=== PATIENT | female | born 1970 | race Caucasian/White ===

== ENCOUNTER 2020-12-23 10:58 | Emergency (ER) | payer OTHER ==
[~2020-12-23 10:58] MED LIST: COLACE100 MG PO; FEOSOL325 MG PO; MOTRIN600 MG PO; PERCOCET 5/3251 TAB PO
[2020-12-23 13:09] LABS: BASOPHIL 0.7 % (0-2); HGB 13.9 g/dl (12.5-16.0); MCHC 33.1 g/dL (32.0-36.0); MCV 96.8 fL (78.0-100.0); MONOCYTE 11.8 % (0-12); MPV 10.5 fL (6.0-9.5); NEUTROPHIL 54.3 % (41-80); NRBC 0; PLT 238 K/uL (150-400); RBC 4.34 M/uL (4.20-5.40); RDW 12.7 % (11.5-14.0); WBC 4.2 K/uL (4.0-10.5)
[2020-12-23 13:15] LABS: BILIRUBIN NEGATIVE (NEGATIVE); BLOOD NEGATIVE Ery/uL (NEGATIVE); CLARITY CLEAR (CLEAR); COLOR YELLOW (YELLOW); GLUCOSE (U) NORMAL (NORMAL); LEUKOCYTES NEGATIVE Leu/uL (NEGATIVE); NITRITE NEGATIVE (NEGATIVE); PROTEIN NEGATIVE (NEGATIVE); SPECIFIC GRAVITY 1.015 (1.001-1.030); UROBILINOGEN 0.2 mg/dL (0.2-1.0); pH 7.5 (5.0-9.0)
[2020-12-23 13:27] LABS: ALBUMIN 3.8 g/dL (3.4-5.0); BILIRUBIN - TOTAL 0.2 mg/dL (0.2-1.0); BUN/CREAT RATIO (CALC) 19.6 RATIO; CREATININE 0.51 mg/dL (0.51-0.95); POTASSIUM 3.9 mmol/L (3.5-5.1); TOTAL PROTEIN 6.8 g/dL (6.4-8.2)
[2020-12-23] MEDS ORDERED: NAPROXEN500 MG PO (15:26)
[2021-01-05] MEDS ORDERED: ACETAMINOPHEN1 EACH PO (13:35)
[2021-01-11] MEDS ORDERED: PROTONIX 40MG T40 MG PO (12:25)
== END 2020-12-23 16:10 | disposition home or self-care (01) ==
LOC: FER 10:58
PROVIDERS: Emergency Medicine
DX: N83.202 Unspecified ovarian cyst, left side (principal); F17.210 Nicotine dependence, cigarettes, uncomplicated; Z90.710 Acquired absence of both cervix and uterus
CPT/HCPCS: 36415; 80053; 81003; 82150; 83690; 85025; J1885; J2405; J7030; Q9967

== ENCOUNTER → 2021-01-11 | Day surgery (SDC) | payer OTHER ==
[~2021-01-11] MED LIST changes: +ACETAMINOPHEN1 EACH PO; +NAPROXEN500 MG PO; +PROTONIX 40MG T40 MG PO
== END | disposition home or self-care (01) ==
LOC: FAS 09:08
DX: Z12.11 Encounter for screening for malignant neoplasm of colon (principal); K44.9 Diaphragmatic hernia without obstruction or gangrene; K76.89 Other specified diseases of liver; K22.8 Other specified diseases of esophagus; N28.1 Cyst of kidney, acquired; N83.8 Other noninflammatory disorders of ovary, fallopian tube and broad ligament; F17.210 Nicotine dependence, cigarettes, uncomplicated; F41.9 Anxiety disorder, unspecified; F32.9 Major depressive disorder, single episode, unspecified; F43.10 Post-traumatic stress disorder, unspecified; Z98.890 Other specified postprocedural states; Z82.49 Family history of ischemic heart disease and other diseases of the circulatory system; Z90.710 Acquired absence of both cervix and uterus; Z20.822 Contact with and (suspected) exposure to COVID-19
CPT/HCPCS: J2250; J2704; J7120